=== PATIENT | female | born 2005 | race Caucasian/White ===

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

== ENCOUNTER 2024-10-01 04:58 | Observation (INO) | payer BC, OTHER ==
[2024-10-01 06:01] LABS: Hematocrit 38.4 % (34.1-44.9); Hemoglobin 13.1 g/dL (11.2-15.7); Mean Cell Volume 85.3 fL (79.4-94.8); Mean Corpuscular Hemoglobin 29.1 pg (25.6-32.2); Mean Corpuscular Hgb Concent. 34.1 g/dL (32.2-35.5); Mean Platelet Volume 9.2 fL (9.4-12.3); Platelet Count 301 x10^3/uL (182-369); Red Cell Distribution Width 11.9 % (11.7-14.4); White Blood Count 24.5 x10^3/uL (3.98-10.04)
--- NOTE | 2024-10-01 06:10 | ERPHSYRPT ---
- History of Present Illness Historian: patient, family Exam Limitations: no limitations Patient Subjective Stated Complaint: c/o abdominal pain and vomiting Triage Nursing Assessment: patient brought into ED by mother with 7/10 abdominal pain and vomiting. patient stated symptoms started yesterday arounf 1700 after work. patient has vomitting 5 or more times. Pain starts in the upper abdomen and radiates to her sides. patient's vitals wnl, skin w/n/d, denies diarrhea, tender with palpation and movement, pulses normal, patient brought in by wheelchair, patient doesn't appear to be in any distress at this time. Timing/Duration: today Activities at Onset: none Quality: aching Abdominal Pain Onset Location: generalized abdomen Pain Radiation: no radiation Severity of Pain-Max: moderate Severity of Pain-Current: moderate Modifying Factors: Improves With: vomiting Associated Symptoms: loss of appetite, nausea, vomiting, weakness, No chest pain, No shortness of breath Previous symptoms: no prior history, no recent treatment Hx Tetanus, Diphtheria Vaccination/Date Given: Yes Hx Influenza Vaccination/Date Given: No Hx Pneumococcal Vaccination/Date Given: No <BRIANNA ALVARENGA - Last Filed: 10/01/24 06:44> <MADAY FRANKLIN - Last Filed: 10/01/24 11:10> - History of Present Illness Time Seen by Provider: 10/01/24 05:30 Physician History: This is a 19-year-old white female patient who presents to the emergency department by private vehicle accompanied by her mother secondary to abdominal pain followed by vomiting without diarrhea. Patient denies chest pain and she denies shortness of breath. She has no cough. Patient states she has had at least 5 episodes of vomiting since midnight. Patient has no known exposures to any individuals similar symptoms or diagnosed with viral illness. Patient has a history of seasonal allergies and anxiety. (BRIANNA ALVARENGA) Allergies/Adverse Reactions: No Known Drug Allergies Allergy (Verified 10/01/24 05:17) Home Medications: Lisdexamfetamine Dimesylate [Vyvanse] 40 mg PO DAILY 04/15/21 [History] Cetirizine HCl [Zyrtec] 10 mg PO DAILY 10/01/24 [History] Multivitamin 1 each PO DAILY 10/01/24 [History] buPROPion HCL [Bupropion HCl Sr] 200 mg PO DAILY 10/01/24 [History] Travel Risk - International Travel Have you traveled outside of the country in past 3 weeks: No - Emerging Infectious Disease Are you exhibiting symptoms associated with any current EIDs: Yes Symptoms: Abdominal Pain, Vomitting <BRIANNA ALVARENGA - Last Filed: 10/01/24 06:44> - Review of Systems Constitutional: No Symptoms Eyes: No Symptoms Ears, Nose, & Throat: No Symptoms Respiratory: No Symptoms Cardiac: No Symptoms Abdominal/Gastrointestinal: No Symptoms, Abdominal Pain, Nausea, Vomiting, Appetite Changes, No Diarrhea Genitourinary Symptoms: No Symptoms Musculoskeletal: No Symptoms Skin: No Symptoms Neurological: No Symptoms Psychological: No Symptoms Endocrine: No Symptoms Hematologic/Lymphatic: No Symptoms Immunological/Allergic: No Symptoms All Other Systems: Reviewed and Negative <BRIANNA ALVARENGA - Last Filed: 10/01/24 06:44> - Past Medical History Pertinent Past Medical History: Yes Neurological History: No Pertinent History ENT History: No Pertinent History Cardiac History: No Pertinent History Respiratory History: Asthma Endocrine Medical History: No Pertinent History Musculoskeletal History: No Pertinent History GI Medical History: No Pertinent History History: No Pertinent History Psycho-Social History: No Pertinent History Female Reproductive Disorders: No Pertinent History Other Medical History: HAY FEVER ALLERGIES, exema, ADHD - Past Surgical History Past Surgical History: No Neuro Surgical History: No Pertinent History Cardiac: No Pertinent History Respiratory: No Pertinent History Gastrointestinal: No Pertinent History Genitourinary: No Pertinent History Musculoskeletal: No Pertinent History Female Surgical History: No Pertinent History - Female History Hx Last Menstrual Period: now Hx Now: No - Social History Smoking Status: Never smoker Exposure to second hand smoke: No Drug Use: none Patient Lives Alone: No - Social Determinants of Health Will the patient participate in the screening: Yes Do you worry about a steady place to live?: No Do you have any problems with any of the following?: No known problems In the past 12 months,have you had to go without utilities?: No Transportation Issues: No Has anyone in your support network made you feel unsafe?: No Have you or anyone in your house had to go without enough: No <BRIANNA ALVARENGA - Last Filed: 10/01/24 06:44> - Physical Exam General Appearance: no apparent distress, alert, anxiety, thin Eye Exam: PERRL/EOMI, eyes nml inspection Ears, Nose, Throat Exam: normal ENT inspection, moist mucous membranes Neck Exam: normal inspection, non-tender, supple, full range of motion Respiratory Exam: normal breath sounds, lungs clear, airway intact, No chest tenderness, No respiratory distress Cardiovascular Exam: regular rate/rhythm, normal heart sounds, normal peripheral pulses Gastrointestinal/Abdomen Exam: soft, normal bowel sounds, tenderness (Generalized mild to palpation), guarding (Generalized mild to palpation), No rebound Pelvic Exam: not done Rectal Exam: not done Back Exam: normal inspection, normal range of motion, No CVA tenderness, No vertebral tenderness Extremity Exam: normal inspection, normal range of motion, pelvis stable Neurologic Exam: alert, oriented x 3, cooperative, emergency physician II-XII nml as tested, nml cerebellar function, nml station & gait, sensation nml Skin Exam: normal color, warm, dry Lymphatic Exam: No adenopathy SpO2 Interpretation: normal SpO2: 97 O2 Delivery: Room Air <BRIANNA ALVARENGA - Last Filed: 10/01/24 06:44> - Nursing Vital Signs Nursing Vital Signs: Initial Vital Signs Temperature 97.6 F 10/01/24 05:04 Pulse Rate 88 10/01/24 05:04 Respiratory Rate 18 10/01/24 05:04 Blood Pressure 122/80 10/01/24 05:04 O2 Sat by Pulse Oximetry 100 10/01/24 05:04 Pain Scale Pain Intensity 7 - Course Nursing assessment & vital signs reviewed: Yes <BRIANNA ALVARENGA - Last Filed: 10/01/24 06:44> - CT Exams Abdomen/Pelvis CT Interpretation: Tele-radiologist Report (Acute appendicitis) <MAADY FRANKLIN - Last Filed: 10/01/24 11:10> Ordered Tests: Active Orders 24 hr Category Date Time Status IV Insertion STAT Care 10/01/24 05:47 Active NPO Diet 10/01/24 11:08 Ordered ABDOMEN AND PELVIS W/0 CONTRAS [CT] Stat Exams 10/01/24 06:11 Completed AMYLASE Stat Lab 10/01/24 05:49 Completed BLOOD CULTURE Stat Lab 10/01/24 06:31 Received CBC W DIFF Stat Lab 10/01/24 06:02 Completed CMP Stat Lab 10/01/24 06:02 Completed CULTURE,URINE Stat Lab 10/01/24 05:49 Received HCG QUALITATIVE, URINE Stat Lab 10/01/24 05:49 Completed LIPASE Stat Lab 10/01/24 05:49 Completed MONO SCREEN Stat Lab 10/01/24 06:02 Completed UA W/RFX UR CULTURE Stat Lab 10/01/24 05:49 Completed Transfer Order Routine Transfer 10/01/24 Ordered Medication Summary Discontinued Medications Generic Name Dose Route Start Last Admin Trade Name Melissa PRN Reason Stop Dose Admin Sodium Chloride 1,000 mls @ 999 mls/hr 10/01/24 06:10 10/01/24 07:28 Sodium Chloride 0.9% 1000 Ml IV 10/01/24 07:10 Infused .Q1H1M STA Infusion Sodium Chloride Confirm 10/01/24 06:15 Sodium Chloride 0.9% 1000 Ml Administered 10/01/24 06:16 Dose 1,000 mls @ ud .ROUTE .STK-MED ONE Levofloxacin/Dextrose 500 mg in 100 mls @ 100 mls/hr 10/01/24 09:02 10/01/24 10:07 Levofloxacin 500mg/100ml D5w IV 10/01/24 10:01 100 mls/hr STAT STA 100 mls/hr Administration Metronidazole 500 mg in 100 mls @ 200 mls/hr 10/01/24 09:02 10/01/24 10:02 Flagyl 500 Mg Ivpb IV 10/01/24 09:31 Infused STAT STA Infusion Metronidazole Confirm 10/01/24 09:05 Flagyl 500 Mg Ivpb Administered 10/01/24 09:06 Dose 500 mg in 100 mls @ ud IV .STK-MED ONE Levofloxacin/Dextrose Confirm 10/01/24 10:03 Levofloxacin 500mg/100ml D5w Administered 10/01/24 10:04 Dose 500 mg in 100 mls @ ud IV .STK-MED ONE Morphine Sulfate 4 mg 10/01/24 10:17 Morphine Sulfate 4 Mg/Ml Injection IV 10/01/24 10:18 STAT ONE Ondansetron HCl 4 mg 10/01/24 10:17 Ondansetron Hcl 4 Mg/2 Ml Vial IV 10/01/24 10:18 STAT ONE Lab/Rad Data: Laboratory Result Diagrams 10/01/24 06:02 10/01/24 06:02 Laboratory Results 12/10/01/24 10/01/24 Range/Units 06:02 06:02 06:02 WBC (3.98-10.04) x10^3/uL RBC (3.93-5.22) x10^6/uL Hgb (11.2-15.7) g/dL Hct (34.1-44.9) % MCV (79.4-94.8) fL MCH (25.6-32.2) pg MCHC (32.2-35.5) g/dL RDW (11.7-14.4) % Plt Count (182-369) x10^3/uL MPV (9.4-12.3) fL Gran % (34.0-71.1) % Immature Gran % (Auto) (0.001-0.429) % Nucleat RBC Rel Count (0.00-0.2) % Eos # (Auto) (0.04-0.36) x10^3/uL Immature Gran # (Auto) (0.001-0.031) x10^3u/L Absolute Lymphs (auto) (1.18-3.74) x10^3/uL Absolute Monos (auto) (0.24-0.86) x10^3/uL Absolute Nucleated RBC (0.00-0.012) x10^3u/L Lymphocytes % (19.3-51.7) % Monocytes % (4.7-12.5) % Eosinophils % (0.7-5.8) % Basophils % (0.1-1.2) % Absolute Granulocytes (1.56-6.13) x10^3/uL Basophils # (0.01-0.08) x10^3/uL Sodium 136 (135-145) mmol/L Potassium 3.8 (3.5-5.1) mmol/L Chloride 99 (98-107) mmol/L Carbon Dioxide 26 (22-30) mmol/L Anion Gap 14.5 (5-15) MEQ/L BUN 14 (7-17) mg/dL Creatinine 0.80 (0.52-1.04) mg/dL Estimated GFR 108.1 ML/MIN Glucose 140 H (74-106) mg/dL Calcium 9.9 (8.4-10.2) mg/dL Total Bilirubin 0.70 (0.2-1.3) mg/dL AST 32 (14-36) U/L ALT 21 (0-35) U/L Alkaline Phosphatase 86 (38-126) U/L Serum Total Protein 8.8 H (6.3-8.2) g/dL Albumin 5.3 H (3.5-5.0) g/dL Amylase (30-110) U/L Lipase (23-300) U/L Urine Color (Yellow) Urine Appearance (Clear) Urine pH (4.6-8.0) Ur Specific [place] (1.005-1.030) Urine Protein (Negative) Urine Glucose (UA) (Negative) mg/dL Urine Ketones (Negative) Urine Blood (Negative) Urine Nitrite (Negative) Urine Bilirubin (Negative) Urine Urobilinogen (0.2) mg/dL Ur Leukocyte Esterase (Negative) U Hyaline Cast (Auto) (0-2) /LPF Urine Microscopic RBC (0-5) /HPF Urine Microscopic WBC (0-5) /HPF Ur Epithelial Cells (None Seen) /HPF Urine Bacteria (None Seen) /HPF Urine Culture Reflexed (NO) Urine HCG, Qual (NEGATIVE) Monoscreen NEGATIVE (NEGATIVE) Influenza Type A Ag NEGATIVE (NEGATIVE) Influenza Type B Ag NEGATIVE (NEGATIVE) RSV (PCR) NEGATIVE (NEGATIVE) SARS-CoV-2 (PCR) NEGATIVE (NEGATIVE) Group A Strep Antibody NOT DETECTED (NEGATIVE) 10/01/24 10/01/24 10/01/24 Range/Units 06:02 05:49 05:49 WBC 24.5 H (3.98-10.04) x10^3/uL RBC 4.50 (3.93-5.22) x10^6/uL Hgb 13.1 (11.2-15.7) g/dL Hct 38.4 (34.1-44.9) % MCV 85.3 (79.4-94.8) fL MCH 29.1 (25.6-32.2) pg MCHC 34.1 (32.2-35.5) g/dL RDW 11.9 (11.7-14.4) % Plt Count 301 (182-369) x10^3/uL MPV 9.2 L (9.4-12.3) fL Gran % 92.0 H (34.0-71.1) % Immature Gran % (Auto) 0.6 H (0.001-0.429) % Nucleat RBC Rel Count 0.0 (0.00-0.2) % Eos # (Auto) 0.04 (0.04-0.36) x10^3/uL Immature Gran # (Auto) 0.16 H (0.001-0.031) x10^3u/L Absolute Lymphs (auto) 0.49 L (1.18-3.74) x10^3/uL Absolute Monos (auto) 1.25 H (0.24-0.86) x10^3/uL Absolute Nucleated RBC 0.00 (0.00-0.012) x10^3u/L Lymphocytes % 2.0 L (19.3-51.7) % Monocytes % 5.0 (4.7-12.5) % Eosinophils % 0.2 L (0.7-5.8) % Basophils % 0.2 (0.1-1.2) % Absolute Granulocytes 22.92 H (1.56-6.13) x10^3/uL Basophils # 0.06 (0.01-0.08) x10^3/uL Sodium (135-145) mmol/L Potassium (3.5-5.1) mmol/L Chloride (98-107) mmol/L Carbon Dioxide (22-30) mmol/L Anion Gap (5-15) MEQ/L BUN (7-17) mg/dL Creatinine (0.52-1.04) mg/dL Estimated GFR ML/MIN Glucose (74-106) mg/dL Calcium (8.4-10.2) mg/dL Total Bilirubin (0.2-1.3) mg/dL AST (14-36) U/L ALT (0-35) U/L Alkaline Phosphatase (38-126) U/L Serum Total Protein (6.3-8.2) g/dL Albumin (3.5-5.0) g/dL Amylase 62 (30-110) U/L Lipase 97 (23-300) U/L Urine Color (Yellow) Urine Appearance (Clear) Urine pH (4.6-8.0) Ur Specific [place] (1.005-1.030) Urine Protein (Negative) Urine Glucose (UA) (Negative) mg/dL Urine Ketones (Negative) Urine Blood (Negative) Urine Nitrite (Negative) Urine Bilirubin (Negative) Urine Urobilinogen (0.2) mg/dL Ur Leukocyte Esterase (Negative) U Hyaline Cast (Auto) (0-2) /LPF Urine Microscopic RBC (0-5) /HPF Urine Microscopic WBC (0-5) /HPF Ur Epithelial Cells (None Seen) /HPF Urine Bacteria (None Seen) /HPF Urine Culture Reflexed (NO) Urine HCG, Qual NEGATIVE (NEGATIVE) Monoscreen (NEGATIVE) Influenza Type A Ag (NEGATIVE) Influenza Type B Ag (NEGATIVE) RSV (PCR) (NEGATIVE) SARS-CoV-2 (PCR) (NEGATIVE) Group A Strep Antibody (NEGATIVE) 10/01/24 Range/Units 05:49 WBC (3.98-10.04) x10^3/uL RBC (3.93-5.22) x10^6/uL Hgb (11.2-15.7) g/dL Hct (34.1-44.9) % MCV (79.4-94.8) fL MCH (25.6-32.2) pg MCHC (32.2-35.5) g/dL RDW (11.7-14.4) % Plt Count (182-369) x10^3/uL MPV (9.4-12.3) fL Gran % (34.0-71.1) % Immature Gran % (Auto) (0.001-0.429) % Nucleat RBC Rel Count (0.00-0.2) % Eos # (Auto) (0.04-0.36) x10^3/uL Immature Gran # (Auto) (0.001-0.031) x10^3u/L Absolute Lymphs (auto) (1.18-3.74) x10^3/uL Absolute Monos (auto) (0.24-0.86) x10^3/uL Absolute Nucleated RBC (0.00-0.012) x10^3u/L Lymphocytes % (19.3-51.7) % Monocytes % (4.7-12.5) % Eosinophils % (0.7-5.8) % Basophils % (0.1-1.2) % Absolute Granulocytes (1.56-6.13) x10^3/uL Basophils # (0.01-0.08) x10^3/uL Sodium (135-145) mmol/L Potassium (3.5-5.1) mmol/L Chloride (98-107) mmol/L Carbon Dioxide (22-30) mmol/L Anion Gap (5-15) MEQ/L BUN (7-17) mg/dL Creatinine (0.52-1.04) mg/dL Estimated GFR ML/MIN Glucose (74-106) mg/dL Calcium (8.4-10.2) mg/dL Total Bilirubin (0.2-1.3) mg/dL AST (14-36) U/L ALT (0-35) U/L Alkaline Phosphatase (38-126) U/L Serum Total Protein (6.3-8.2) g/dL Albumin (3.5-5.0) g/dL Amylase (30-110) U/L Lipase (23-300) U/L Urine Color Dark Yellow A (Yellow) Urine Appearance Clear (Clear) Urine pH 7.0 (4.6-8.0) Ur Specific [place] >=1.030 A (1.005-1.030) Urine Protein 30 (Negative) Urine Glucose (UA) Negative (Negative) mg/dL Urine Ketones 40 A (Negative) Urine Blood Large A (Negative) Urine Nitrite Negative (Negative) Urine Bilirubin Negative (Negative) Urine Urobilinogen 1.0 A (0.2) mg/dL Ur Leukocyte Esterase Negative (Negative) U Hyaline Cast (Auto) NONE SEEN (0-2) /LPF Urine Microscopic RBC 11-20 A (0-5) /HPF Urine Microscopic WBC 0-2 (0-5) /HPF Ur Epithelial Cells None Seen (None Seen) /HPF Urine Bacteria None Seen (None Seen) /HPF Urine Culture Reflexed YES (NO) Urine HCG, Qual (NEGATIVE) Monoscreen (NEGATIVE) Influenza Type A Ag (NEGATIVE) Influenza Type B Ag (NEGATIVE) RSV (PCR) (NEGATIVE) SARS-CoV-2 (PCR) (NEGATIVE) Group A Strep Antibody (NEGATIVE) <BRIANNA ALVARENGA - Last Filed: 10/01/24 06:44> - Progress Progress: improved Counseled pt/family regarding: lab results, diagnosis, rad results <MADAY FRANKLIN - Last Filed: 10/01/24 11:10> - Progress Progress Note: 10/01/24 06:33 My medical decision making and the assignment of moderate complexity to this patient's medical issue today is based on review of the patient's past medical history, review of the patient's medication list, reviewed patient drug allergy list, history present illness and physical findings on examination. The workup in this patient includes placement of intravenous line, infusion of crystalloid solution, infusion of Zofran intravenously, CBC, CMP, amylase, lipase, urinalysis, urine test, viral swabs, monotest and CT scan of the abdomen pelvis without contrast. Differential diagnosis includes but is not limited to urinary tract infection, acute intra-abdominal/pelvic abnormality, viral illness, 10/01/24 06:44 I am transferring care of this patient to Dr. Maday Franklin at shift change. I have discussed the patient past medical history, presenting complaint and workup results to follow-up on. He will follow-up on those results and make final disposition. (BRIANNA ALVARENGA) 19-year-old female initially seen by Dr. Alvarenga. Patient endorsed to Dr. Franklin at approximately [address] Franklin advised to follow-up on pending studies. Patient has a leukocytosis of 24.5. An acute appendicitis observed on today's CT scan. Patient is NPO. I spoke to Dr. Ryland Melgar at 11:04 AM. He advised admission under his service. Patient received Levaquin and Flagyl. Patient also received morphine and Zofran. IV fluids infused. Patient NPO. Patient would be admitted to general surgery service. Plan of care discussed with patient and her mother who is at the bedside. They agreed admission at [facility] for further evaluation and treatment. Patient reassessed. Pain essentially resolved. Vital stable. Patient resting comfortably. They voiced no other complaints or concerns at this time. Portions of this note were created with voice recognition technology. There may be grammatical, spelling, punctuation or sound alike errors 10/01/24 11:08 (MADAY FRANKLIN) - Departure Departure Disposition: Home Critical Care Time: No <BRIANNA ALVARENGA - Last Filed: 10/01/24 06:44> <MADAY FRANKLIN - Last Filed: 10/01/24 11:10> - Departure Clinical Impression: Abdominal pain, Vomiting, Leukocytosis, Dehydration, Hematuria, Acute appendicitis Condition: Stable Referrals: PRABHAKAR YOUNG [Primary Care Provider] - Follow up/PCP as directed
[2024-10-01 06:11] LABS: Appearance Clear (Clear); Bacteria None Seen /HPF (None Seen); Bilirubin Negative (Negative); Blood Large (Negative); Epithelial Cells None Seen /HPF (None Seen); Glucose, Urine Negative (Negative); Hyaline Casts NONE SEEN /LPF (0-2); Ketones 40 (Negative); Leukocyte Esterase Negative (Negative); Nitrite Negative (Negative); Protein,Urine Dip 30 (Negative); Specific Gravity >=1.030 (1.005-1.030); WBC 0-2 /HPF (0-5)
[2024-10-01 06:14] LABS: ALBUMIN 5.3 g/dL (3.5-5.0); ANION GAP 14.5 MEQ/L (5-15); BILIRUBIN,TOTAL 0.7 mg/dL (0.2-1.3); Calcium 9.9 mg/dL (8.4-10.2); Creatinine 1 0.8 mg/dL (0.52-1.04); EST GLOMERULAR FILTRATION RATE 108.1 ML/MIN; Potassium 3.8 mmol/L (3.5-5.1); Total Protein 8.8 g/dL (6.3-8.2)
[2024-10-01] MEDS ORDERED: Sodium Chloride 0.9% 1000 ML 1,000 ML ONE (06:15)
[2024-10-01] MEDS: Sodium Chloride 0.9% 1000 ML 1,000 ML IV STA (06:16)
[2024-10-01 06:21] LABS: Absolute Neutrophil Ct (ANC) 22.92 x10^3/uL (1.56-6.13); BASOPHIL % 0.2 % (0.1-1.2); Basophil (Absolute #) 0.06 x10^3/uL (0.01-0.08); Eosinophil % 0.2 % (0.7-5.8); Eosinophil (Absolute #) 0.04 x10^3/uL (0.04-0.36); IMMATURE GRAN # 0.16 x10^3u/L (0.001-0.031); IMMATURE GRAN % 0.6 % (0.001-0.429); Lymphocyte (Absolute #) 0.49 x10^3/uL (1.18-3.74); Monocyte (Absolute #) 1.25 x10^3/uL (0.24-0.86)
[2024-10-01 06:24] LABS: AMYLASE 62 U/L (30-110); LIPASE 97 U/L (23-300)
[2024-10-01 06:29] LABS: Group A Strep NOT DETECTED (NEGATIVE)
[2024-10-01 06:33] LABS: HCG URINE TEST NEGATIVE (NEGATIVE)
[2024-10-01 06:42] LABS: INFLUENZA A NEGATIVE (NEGATIVE); INFLUENZA B NEGATIVE (NEGATIVE); RESPIRATORY SYNCTIAL VIRUS NEGATIVE (NEGATIVE); SARS-CoV-2 Xpert Express NEGATIVE (NEGATIVE)
--- NOTE | 2024-10-01 08:28 | XRAY ---
CLINICAL HISTORY: ABD pain; nausea vomiting COMPARISON: None. TECHNIQUE: Non-contrast CT of the abdomen and pelvis was performed, with the following protocol: axial images, and reconstructed coronal and sagittal images. No intravenous contrast was administered. One of the following dose reduction techniques was utilized for this exam: Automated exposure control, adjustment of the mA and/or kV according to patient size, and use of iterative reconstruction. FINDINGS: Abdomen: Liver: Normal in size, shape, and density. No focal lesions, cysts, or masses were identified. Gallbladder and Biliary System: The gallbladder is normal in size and shape. No wall thickening, pericholecystic fluid, or gallstones were identified. Pancreas: Pancreatic head, body, and tail are visualized and appear normal in size and density. No pancreatic masses or calcifications were noted. Spleen: Normal in size, shape, and density. Small calcified granuloma in parenchyma. Kidneys and Adrenal Glands: Both kidneys are normal in size, shape, and position. Cortical thickness is within normal limits. No renal calculi or hydronephrosis. Adrenal glands are unremarkable. Appendix: Appendix is dilated and inflamed measuring 9 mm in caliber. Surrounding fat stranding and mild free fluid seen. Pelvis: Urinary Bladder: Normal in contour and wall thickness. No intraluminal lesions. Uterus: Normal in size and contour. No masses or abnormal thickening. Ovaries: Not well visualized but no gross abnormalities noted. Vagina: Normal in contour and wall thickness. Cervix: No evidence of mass or abnormal thickening. Peritoneal and Retroperitoneal Structures: No lymphadenopathy was noted. Bowel: The visualized bowel loops are normal in caliber and appearance. No evidence of bowel obstruction or wall thickening. Bones and Soft Tissues: Pelvic bones and soft tissues are unremarkable. No fractures or abnormal masses were identified. IMPRESSION: Dilated and inflamed appendix with surrounding fat stranding and mild free fluid suggesting acute appendicitis. Clinical correlation is recommended. Electronically Signed by: Ugo Craig MD. (10/01/2024 08:23:50 EST)
[2024-10-01] MEDS ORDERED: FLAGYL 500 MG IVPB 500 MG/100 ML BAG IV ONE (09:05)
[2024-10-01] MEDS: FLAGYL 500 MG IVPB 500 MG/100 ML BAG IV STA (09:07)
[2024-10-01] MEDS ORDERED: Levofloxacin 500MG/100ML D5W 500 MG/100 ML BAG IV ONE (10:03)
[2024-10-01] MEDS: Levofloxacin 500MG/100ML D5W 500 MG/100 ML BAG IV STA (10:07)
[2024-10-01] MEDS ORDERED: Zofran 4 MG/2 ML VIAL ONE ×2 (11:04→13:18)
[2024-10-01] MEDS ORDERED: MORPHINE SULFATE 4 MG INJ ONE (11:05)
[2024-10-01] MEDS: Zofran 4 MG/2 ML VIAL IV ONE (11:08)
[2024-10-01] MEDS: MORPHINE SULFATE 4 MG INJ IV ONE (11:08)
[2024-10-01] MEDS ORDERED: Sensorcaine 0.25% 10 ML ONE (12:08)
[2024-10-01] MEDS: Lactated Ringers 1,000 ML IV SCH (12:36)
[2024-10-01] MEDS: MEFOXIN 2 GM PREMIX** 2 GM/50 ML ML IV SCH (12:36)
[2024-10-01] MEDS ORDERED: Versed 2 MG/2 ML Injection ONE (12:56)
[2024-10-01] MEDS ORDERED: SUBLIMAZE 100 MCG/2 ML ONE (12:57)
[2024-10-01] MEDS ORDERED: Ephedrine Sulfate 50 MG/ML ONE (13:12)
[2024-10-01] MEDS ORDERED: Decadron 4 MG INJ ONE (13:18)
[2024-10-01] MEDS ORDERED: TORAdol 30 mg Injection ONE (13:18)
[2024-10-01] MEDS ORDERED: BRIDION 200MG/2ML IV ONE (13:18)
[2024-10-01] MEDS ORDERED: ROCURONIUM BROMIDE IV ONE (13:18)
[2024-10-01] MEDS ORDERED: PHENYLEPHRINE HCL ONE (13:19)
[2024-10-01] MEDS ORDERED: TYLENOL 325 MG PO PRN (15:31)
[2024-10-01] MEDS ORDERED: Zofran 4 MG/2 ML VIAL IV PRN (15:33)
[2024-10-01] MEDS ORDERED: MEDICATION INTERVENTION MC SCH ×2 (15:45)
[2024-10-01] MEDS: D5W/0.45NS W/ 20mEq KCl 1000 ML 1,000 ML IV SCH (15:47)
[2024-10-01] MEDS: MORPHINE SULFATE 2 MG INJ IV PRN (15:50)
[2024-10-01 16:43] VITALS: BP 95/57; PULSE 84; RESP 17; TEMP 96.5; O2SAT 99
[2024-10-01] MEDS: NORCO 5/325 MG PO PRN (20:20)
[2024-10-01] MEDS ORDERED: Augmentin 875-125 Tablet ONE (21:15)
[2024-10-02] MEDS ORDERED: THERAGRAN MULTIVITAMIN PO SCH (10:00)
[2024-10-02] MEDS ORDERED: LISDEXAMFETAMINE DIMESYLATE 30 MG PO SCH (10:00)
[2024-10-02] MEDS ORDERED: BUPROPION HCL 200 MG PO SCH (10:00)
[2024-10-02] MEDS ORDERED: CLARITIN 10 MG PO SCH (10:00)
[2024-10-02] MEDS ORDERED: NON-FORMULARY ITEM (Multivitamin [Multivitamin] 1 EACH Tablet) PO SCH (10:00)
[2024-10-02] MEDS ORDERED: NON-FORMULARY ITEM (Cetirizine Hcl [Zyrtec] 10 MG Capsule) PO SCH (10:00)
--- NOTE | 2024-10-05 20:20 | OP ---
SURGERY DATE/TIME: 10/01/2024 [id number] PREOPERATIVE DIAGNOSIS: Acute appendicitis. POSTOPERATIVE DIAGNOSIS: Acute appendicitis. PROCEDURE: Laparoscopic appendectomy. SURGEON: Markie Melgar MD. ANESTHESIA: General endotracheal tube. COMPLICATIONS: None. CONDITION: Stable. DESCRIPTION OF PROCEDURE AND FINDINGS: The patient was taken to surgery. General anesthetic. Routine prep and drape, time-out performed. Two 5's laterally, 12 at the umbilicus. Direct visualization, good view. Appendix was acutely inflamed. It was not very long. It was about 2-1/2 inches. The base was mobilized and the base was taken with 2.5 gas cartridge. The appendix was taken at the cecum. Staple line was right on. The field was dry. Placed in the condom bag and removed. No drains were placed. The patient tolerated the procedure well. Port sites closed with 4-0 Vicryl and Steri-Strips. The patient tolerated the procedure satisfactory.
== END 2024-10-01 21:14 | disposition home or self-care (01) ==
LOC: ED 04:58 → MED SURG 11:34
PROVIDERS: ADMIT Surgery; ATTEND Surgery
DX: K35.80 Unspecified acute appendicitis (principal)
CPT/HCPCS: 0241U; 36415; 44970; 74176; 80053; 81001; 81025; 82150; 83690; 85025; 86308; 87040; 87086; 87651; 93268; 96365; 96374; 96375; 99285; G0378; J0694; J1100; J1885; J1956; J2250; J2270; J2371; J2405; J2704; J3010; A9270-GY